=== PATIENT | female | born 1980 | race Caucasian/White ===

== ENCOUNTER 2021-10-04 05:57 | Observation (INO) ==
--- NOTE | 2021-09-30 10:24 | Anesthesiology Consultation ---
Date of Service September 30, 2021 Assessment & Plan (1) Encounter for pre-operative examination: Chart Review Chart Review: Acceptable Risk for Surgery (pending preop Covid testing results ) and Patient NOT seen in Pre Admission Testing Per nursing assessment 09/29/2021, patient denies any recent travel. No known Covid infection in the past 90 days. Patient is fully vaccinated for Covid. No known Covid positive exposures or Covid related symptoms. Preop Covid testing scheduled 10/01/21= will await results History Surgery Operation Date: 10/04/21 07:30 Proposed Procedures p Bilateral Breast Augmentation with Silicone Implants - Jocelyne Cleaning MD s Abdominoplasty - Jocelyne Cleaning MD Height/Weight Height: 5 ft 3 in Weight: 55.792 kg Allergies Allergy/AdvReac Type Severity Reaction Status Date / Time No Known Allergies Allergy Verified 09/29/21 16:31 Medications Home Medications Medication Instructions Recorded Confirmed Last Taken levothyroxine 100 mcg capsule 100 mcg PO QAM 04/16/21 09/29/21 Unknown topiramate 50 mg tablet (Topamax) 100 mg PO HS 04/20/21 09/29/21 Unknown cephalexin 500 mg capsule 500 mg PO TID 7 Days #21 cap 09/23/21 09/29/21 Unknown diazepam 2 mg tablet (Valium) 2 mg PO Q6 PRN #10 tab 09/23/21 09/29/21 Unknown oxycodone-acetaminophen 5 mg-325 1 tab PO Q4H PRN #18 tab 09/23/21 09/29/21 Unknown mg tablet (Endocet) Past Medical History Medical History Chronic low blood pressure Hypothyroid Migraines Nausea and vomiting after administration of anesthetic agent Slow heart rate PT ACTIVE, WORKS OUT FREQUENTLY/ ASYMPTOMATIC Past Family History Family History Sister Clotting disorder Past Surgical History Surgical History S/P appendectomy HX S/P ovarian cystectomy HX MULTIPLE S/P tubal ligation HX Social History Smoking Status: Never smoker Do You Dip or Chew Tobacco: No Hx Alcohol Use: Yes alcohol intake frequency: 0-2 drinks per day Alcohol Intake Frequency Comment: 1-3 truly drinks a night Hx Substance Use: No substance use type: does not use Lab Results Anesthesia Preop Results Results Anesthesia Widget: WBC 4.80 K/uL (4.8-10.8) 09/23/21 Hgb 15.0 g/dL (12.0-16.0) 09/23/21 Hct 42.3 % (37-47) 09/23/21 Plt 263 K/uL (130-400) 09/23/21 Na 140 mmol/L (136-145) 09/23/21 K 3.7 mmol/L (3.5-5.1) 09/23/21 Cl 106 mmol/L (98-107) 09/23/21 CO2 27 mmol/L (21-32) 09/23/21 BUN 24 mg/dl (6-23) H 09/23/21 Creat 0.86 mg/dl (0.6-1.2) 09/23/21 Glucose Level 76 mg/dl (70-99(Fasting)) 09/23/21 PT 10.3 Seconds (9.0-12.0) 09/23/21 INR 1.0 (0.9-1.1) 09/23/21 Testing Electrocardiogram Date: 08/03/20 >2 year old Bradycardia noted at 48bpm per confirming provider
[2021-10-04] MEDS ORDERED: ceFAZolin 2000MG 2,000 MG/15 ML SYR IV SCH (06:00)
[2021-10-04] MEDS ORDERED: LR 15ML/HR IV SCH (06:00)
--- NOTE | 2021-10-04 06:46 | History & Physical Bridge Note ---
Date of Service October 04, 2021 History & Physical Bridge Note I have examined the patient, reviewed the History & Physical and in the interval since the performance of the History & Physical I have noted the following changes of clinical significance: no changes noted
[2021-10-04] MEDS ORDERED: MIDAZOLAM HCL 1 MG/ML 2ML VIAL ONE (06:49)
[2021-10-04] MEDS ORDERED: ROCURONIUM BROMIDE 10 MG/ML 5 ML VIAL IV ONE ×2 (06:49→09:44)
[2021-10-04] MEDS ORDERED: PROPOFOL IV EMULSION 10 MG/ML 20 ML VIAL IV ONE (06:49)
[2021-10-04] MEDS ORDERED: ONDANSETRON INJ 2 MG/ML 2 ML VIAL ONE (06:49)
[2021-10-04] MEDS ORDERED: fentaNYL citrate 100 MCG/2 ML VIAL ONE (06:49)
[2021-10-04] MEDS ORDERED: HYDROmorphone INJ 2 MG/ML SYR/VIAL ONE (06:49)
[2021-10-04] MEDS ORDERED: LIDOCAINE 1%/EPINEPHRINE 1:100,000 50 ML VIAL ONE (07:03)
[2021-10-04] MEDS ORDERED: BUPIVACAINE 0.25% 30 ML VIAL ONE (07:03)
[2021-10-04] MEDS ORDERED: ceFAZolin 330 MG/ML 1 GM VIAL ONE ×2 (07:03→08:18)
[2021-10-04] MEDS ORDERED: EPINEPHrine INJ 1 MG/ML AMP ONE (07:03)
[2021-10-04] MEDS ORDERED: LIDOCAINE 1% LOCAL 20 ML VIAL ONE (07:03)
[2021-10-04] MEDS ORDERED: GENTAMICIN SULFATE 40 MG/ML 2 ML VIAL ONE ×3 (07:03→08:18)
[2021-10-04] MEDS ORDERED: ATROPINE SULFATE 0.1 MG/ML 10ML SYR IV PRN (07:12)
[2021-10-04] MEDS ORDERED: ONDANSETRON INJ 2 MG/ML 2 ML VIAL IV PRN ×2 (07:12→16:09)
[2021-10-04] MEDS ORDERED: ePHEDrine sulfate 50 MG/ML AMP IV PRN (07:12)
[2021-10-04] MEDS ORDERED: PROMETHAZINE HCL 6.25 MG in SODIUM CHLORIDE 0.9% 50 ML IV PRN (07:12)
[2021-10-04] MEDS ORDERED: SCOPOLAMINE 1 MG TDSY TD ONE (07:30)
[2021-10-04] MEDS ORDERED: diphenhydrAMINE 50 MG/ML VIAL ONE (08:04)
[2021-10-04] MEDS ORDERED: SUGAMMADEX SODIUM 200 MG/2 ML VIAL IV ONE (09:18)
[2021-10-04] MEDS ORDERED: ACETAMINOPHEN 1000 MG/100 ML IV IV ONE (09:18)
[2021-10-04] MEDS ORDERED: TISSEEL FIBRIN SEALANT 10ML TOP ONE (12:07)
--- NOTE | 2021-10-04 12:35 | Post Operative Brief Note ---
PG Immediate Post Op with CF Date of Surgery October 04, 2021 Pre & Post Diagnosis Operation Date: 10/04/21 07:30 Pre-Op Diagnosis: Encounter for Cosmetic Surgery Post-Op Diagnosis: Encounter for Cosmetic Surgery I identified the patient and participated in the time-out.: Yes Procedure Operation Date: 10/04/21 07:30 Actual Procedures p Bilateral Breast Augmentation with Silicone Implants(Bilateral) - Jocelyne Cleaning MD s Abdominoplasty - Jocelyne Cleaning MD Surgeon Jocelyne Cleaning MD Program Manager Valerie Arenas PA-C Estimated Blood Loss 50 Findings Consistent with Post-Op Diagnosis Specimens Specimen Description: None per surgeon Drains Cline Catheter and Jimmy-John Drain
--- NOTE | 2021-10-04 12:43 | Operative Report ---
PG Post Operative Report Pre & Post Diagnosis Operation Date: 10/04/21 07:30 Pre-Op Diagnosis: Encounter for Cosmetic Surgery Post-Op Diagnosis: Encounter for Cosmetic Surgery I identified the patient and participated in the time-out.: Yes Procedure Operation Date: 10/04/21 07:30 Actual Procedures p Bilateral Breast Augmentation with Silicone Implants(Bilateral) - Jocelyne Cleaning MD s Abdominoplasty - Jocelyne Cleaning MD Surgeon Jocelyne Cleaning MD Measurement Analyst Valerie Arenas PA-C Estimated Blood Loss 50 Findings Consistent with Post-Op Diagnosis Specimens none Drains JPx2 Anesthesia Type General Complications none Indications desiring cosmetic improvement in abdomen, breast enlargement Description of Procedure The risks, benefits, and alternatives of the procedure were explained to the patient, who agreed and signed consent. She was identified and marked in the preoperative holding area. She was brought to the operating room, where she was positioned supine and placed under general anesthesia without incident. A martinez catheter was placed. Surgical site was prepped and draped sterilely. A time- out procedure was performed. Tegaderms were placed as a barrier over the nipple-areolar complexes bilaterally. Access incision was marked in the inframammary fold using medial border of the areola as the medial most aspect of the incision. 1% lidocaine with epinephrine was used to anesthetize the planned incisions as well as the breast parenchyma. A 15blade scalpel was used to make the incision through skin and into underlying dermis. The incision was deepened using electrocautery through subcutaneous fat and breast parenchyma. I planned a dual plane 3 augmentation. The lateral border of the pectoralis major muscle was identified and elevated. A retropectoral pocket was created using lighted retractor and electrocautery. Dissection was first performed superiorly and laterally and then dissection was carried medially along the inframammary fold. Pectoralis major muscle fibers were divided using electrocautery, leaving the pectoralis fascia intact along the inframammary fold. Small tendinous attachments medially were divided using electrocautery, leaving the origin of the pectoralis intact along the sternum. Once I was satisfied with the pocket dissection, hemostasis was achieved with electrocautery. Following this, the wound was irrigated with saline and sizer implants were tried. I initially began with a 325 cc sizer based on her desired goal of around 300 cc which I placed into the pocket. The implant fit nicely into the pocket but with some minimal skin excess. I also tried a 340 cc extra full profile sizer, which was too large and too projecting .The sizer was removed, pocket was irrigated and packed using antibiotic soaked lap sponges and Marcaine. A similar dissection was undertaken on the right side. Once I was satisfied with the shape and the pocket size of both breasts, the pockets were inspected for hemostasis and again irrigated with triple antibiotic irrigation. Gloves were changed, instruments were wiped down and I selected an 335 cc SSF Natrelle Inspira full profile smooth round silicone gel implant which was then placed in the left breast pocket. The position was checked and the implant was placed inferiorly as possible along the inframammary fold. Superficial fascia was re-approximated using 2-0 Vicryl interrupted sutures, followed by approximation of deep dermis using 2-0 Vicryl suture, superficial dermis using 3-0 PDS suture and closure of the incision using 3-0 Monocryl running subcuticular suture. An identical implant was selected for the right side and closure was performed in similar fashion. Dermabond was applied to both incisions. I then began the abdominoplasty portion of the procedure. I reassessed my markings which included a lower horizontal abdominal incision just below her prior Pfannenstiel incision. Incision was marked bilaterally to the ASIS. I began by injecting 1% lidocaine with epinephrine along the planned incision. The lower abdominal incision was made using a 15-blade scalpel to incise epidermis and superficial dermis followed by electrocautery to incise deep dermis, subcutaneous fat, Andrew's fascia down to the abdominal wall. Electrocautery was used to elevate the anterior abdominal skin flap ligating the perforating vessels with electrocautery. Dissection was carried up to the level of the umbilicus in the midline. At this point, a 15-blade scalpel was used to circumscribe the umbilicus. A vertical midline incision was then made from the incision to the umbilicus and divided in the midline using electrocautery. The umbilicus was then dissected out using electrocautery down to abdominal wall. The umbilical stalk appeared viable throughout the procedure.I continued undermining the abdominal wall skin flap above the umbilicus to the xiphoid process, significantly narrowing the dissection to avoid jeopardizing blood supply.I began repair of the rectus diastasis, which was about 3 cm in greatest diameter and extended nearly the full length of the abdomen, widest above the umbilicus. Plication from the xiphoid to the umbilicus and from the umbilicus to the pubic symphysis was performed using 0 Prolene interrupted [id number] sutures. 0 Prolene running suture was then placed to oversew the [id number] sutures and reinforced the repair. At this point, the bed was flexed and the mid portion of the superior skin flap was inset above the mons pubis using 2-0 Vicryl suture. Skin flaps were marked for excision. A 15-blade scalpel was used to make these incisions and the incision was deepened through dermis, subcutaneous fat, Andrew's fat using electrocautery. 15 Frisian Rocco drains were placed in the wound bed and brought out through a separate stab incision in the mons pubis. The drains were sutured into place using 3-0 nylon. The umbilicus was brought out through an inverted triangular incision in the abdominal wall. This was performed using a 15-blade scalpel. Tisseel was sprayed under the flap and into the wound prior to closure. Wound closure was then begun lateral to medial using 2-0 Vicryl Andrew's fascia sutures, 2-0 Vicryl deep dermal sutures, 2-0 PDO running superficial Quill suture, 3-0 Monocryl running subcuticular suture. Umbilicus was brought out through the inverted triangle incision and was sutured into place using 4-0 chromic half buried horizontal mattress sutures. The umbilicus was dressed using Xeroform and the incision was dressed using Dermabond Prineo followed by dry dressings and an abdominal binder. The procedure was tolerated well. The patient was awakened and transferred to recovery in satisfactory condition. Dry dressings and a surgical bra were placed. The patient was awakened and transferred to recovery in satisfactory condition. Valerie Arenas PA-C was present and scrubbed throughout the entire procedure, assisting with retraction and simultaneous wound closure. I attest to the content of the Intraoperative Record and any orders documented therein. Any exceptions are noted below.
[2021-10-04] MEDS: fentaNYL citrate 100 MCG/2 ML VIAL IV PRN ×2 (13:24→13:34)
--- NOTE | 2021-10-04 13:49 | Anesthesiology Progress Note ---
Date of Service October 04, 2021 Anesthesia Post Procedure Vital Signs Vital Signs: Temp Pulse Pulse Resp BP Pulse Ox 10/04/21 13:35 73 11 L 99/55 L 100 10/04/21 13:25 62 22 122/70 100 10/04/21 13:15 73 30 H 115/77 100 10/04/21 13:05 35.4 C L 57 L 18 104/62 100 10/04/21 06:18 36.5 C 53 L 18 100/60 100 Pain Intensity Bilateral Breast: Pain Intensity: 5 Transfer of Care Handoff Completed per policy Notes Mental Status: alert / awake / arousable and participated in evaluation Patient Amnestic to Procedure: Yes Nausea / Vomiting: adequately controlled Pain: adequately controlled Airway Patency, RR, SpO2: stable & adequate BP & HR: stable & adequate Hydration State: stable & adequate Anesthetic Complications: no major complications apparent and Pt Satisfied with anesthetic care
[2021-10-04] MEDS: HYDROmorphone INJ 1 MG/ML SYRINGE IV PRN ×2 (14:13→14:18)
--- NOTE | 2021-10-04 14:49 | Surgery Progress Note ---
Date of Service October 04, 2021 Assessment & Plan (1) Encounter for cosmetic surgery: Plan: Doing well s/p bilateral breast augmentation and abdominoplasty. Will transfer to med/surg when tmep stable. Subjective Patient resting in ASU. Pain is controlled. Low body temps, working on warming her up. Physical Exam Physical Exam: compression garments in place. no hematoma of breasts, drains with minimal serosang output Results & Data ([facility]) Vital Signs (Past 12 Hours) Vital Signs Temp Pulse Pulse Resp BP Pulse Ox 10/04/21 14:25 47 L 14 101/56 L 100 10/04/21 14:15 42 L 17 118/53 L 100 10/04/21 14:05 44 L 15 95/61 L 100 10/04/21 13:55 44 L 17 109/62 100 10/04/21 13:45 743 H 17 116/60 100 10/04/21 13:35 73 11 L 99/55 L 100 10/04/21 13:25 62 22 122/70 100 10/04/21 13:15 73 30 H 115/77 100 10/04/21 13:05 35.4 C L 57 L 18 104/62 100 10/04/21 06:18 36.5 C 53 L 18 100/60 100 PG Care Time/CCT Total # of Minutes Spent Total Time Spent with Patient: Total time spent is greater than 50% in coordination of care (as documented) at patient's floor/unit and/or counseling patient: Coding Level of Care Code None Diagnoses Encounter for cosmetic surgery Z41.1
[2021-10-04] MEDS ORDERED: diphenhydrAMINE 50 MG/ML VIAL IV PRN (16:09)
[2021-10-04] MEDS ORDERED: diphenhydrAMINE Capsule 25 MG CAP PO PRN (16:09)
[2021-10-04] MEDS ORDERED: diazePAM 5 MG TABLET PO PRN (16:09)
[2021-10-04] MEDS ORDERED: LORazepam 0.5 MG TAB PO PRN (16:09)
[2021-10-04] MEDS ORDERED: oxyCODONE/ACETAMINOPHEN 5mg/325mg TAB PO PRN ×2 (16:09)
[2021-10-04] MEDS ORDERED: MoRPHine SULFATE 2 MG/ML CARP IV PRN (16:09)
[2021-10-04] MEDS ORDERED: PROMETHAZINE HCL 12.5 MG in SODIUM CHLORIDE 0.9% 50 ML IV PRN (16:09)
[2021-10-04] MEDS ORDERED: ACETAMINOPHEN 325 MG TAB PO PRN (16:09)
[2021-10-04] MEDS: D5W AND 1/2NSS + 20MEQ KCL 20 MEQ/1,000 ML BAG IV SCH (16:48)
[2021-10-04] MEDS: MoRPHine SULFATE 4 MG/ML 1 ML CARP\\VIAL IV PRN ×2 (17:30→20:38)
[2021-10-04] MEDS: ceFAZolin 2000MG 2,000 MG/15 ML SYR IV SCH (17:59)
[2021-10-04] MEDS ORDERED: TOPIRAMATE 100 MG TAB PO SCH (21:00)
[2021-10-05] MEDS: ceFAZolin 2000MG 2,000 MG/15 ML SYR IV SCH (00:36)
[2021-10-05] MEDS: D5W AND 1/2NSS + 20MEQ KCL 20 MEQ/1,000 ML BAG IV SCH (06:05)
[2021-10-05] MEDS: LEVOTHYROXINE SODIUM 100 MCG TABLET PO SCH ×2 (07:10→07:11)
[2021-10-05] MEDS ORDERED: MULTIVITAMIN TAB PO SCH (09:00)
--- NOTE | 2021-10-05 13:19 | Surgery Progress Note ---
Date of Service October 05, 2021 Assessment & Plan (1) Encounter for cosmetic surgery: Plan: Belkis is healing well POD#1 s/p bilateral breast augmentation and abdominoplasty. We reviewed all her post-op instructions including when to shower, when to remove gauze dressings, how to care for her umbilicus and drains. She will be d/c home today and call to follow-up tomorrow. Admission and Anticipated Discharge Date Admission Date: October 04, 2021 Subjective Belkis is resting in a chair. She was OOB to ambulate, and she has voided after removal of her martinez. Pain is controlled with Endocet, but she notes she feels very tight. Physical Exam Physical Exam: compression bra and abdominal binder removed. umbical packing changed and drains stripped. incisions are CDI, appropriately swollen with mild ecchymosis of the breasts. drains with 20cc serosang output. Results & Data ([facility]) Vital Signs (Past 12 Hours) Vital Signs Temp Pulse Pulse Resp BP Pulse Ox 10/05/21 12:04 37.2 C 70 66 16 98/63 L 100 10/05/21 07:34 37.2 C 70 16 98/63 L 100 10/05/21 03:02 36.8 C 66 16 101/66 100 PG Care Time/CCT Total # of Minutes Spent Total Time Spent with Patient: Total time spent is greater than 50% in coordination of care (as documented) at patient's floor/unit and/or counseling patient: Coding Level of Care Code None Diagnoses Encounter for cosmetic surgery Z41.1
--- NOTE | 2021-10-05 13:40 | Discharge Summary ---
Date of Service October 05, 2021 Admission HPI Per Admitting Provider see admission H&P Admission Exam Per Admitting Provider see admission H&P Principal Diagnosis Encounter for cosmetic surgery Discharge Exam VSS. incisions CDI, umbilicus viable. drains with appropriate serosang output Discharge Data Allergies Allergy/AdvReac Type Severity Reaction Status Date / Time No Known Allergies Allergy Verified 09/29/21 16:31 Procedures Performed Operation Date: 10/04/21 07:30 Actual Procedures p Bilateral Breast Augmentation with Silicone Implants(Bilateral) - Jocelyne Cleaning MD s Abdominoplasty - Jocelyne Cleaning MD Ordered Studies 10/04/21 05:00 US - OR guided needle placemen Routine Hospital Course (1) Encounter for cosmetic surgery: Patient presented to [facility] for cosmetic surgery. She was taken to the OR and underwent bilateral breast augmentation with silicone breast implants and abdominoplasty. There were no intraoperative complications. She was taken to recovery and transferred to med/surg for observation. On POD#1, she was feeling well. She was tolerating a regular diet and ambulating. She was able to void after catheter was removed. On exam, her vitals were stable. Her incisions were CDI. Her drains had appropriate output. She was discharged home with instructions to follow-up in the office in tw0 weeks. Total Time Total Time Spent Total Time Spent (In Minutes): 20 Discharge Plan Discharge Items Patient Disposition: Home - Self-Care Reason For Visit: Encounter for Cosmetic Surgery POST OP Discharge Diagnosis: s/p bilateral breast augmentation and abdominoplasty Activity: As commented below Non-emergency contact: Surgeon Call non-emergency contact if: you have any medication questions, your pain is n ot controlled, you have a fever, your wound has increased redness and your wound pain has increased Follow-up/Referrals: Valerie Arenas PA-C [Physician Military Communications Specialist] - Ninfa Estes CRNP [Primary Care Provider] - Diet: Regular Addtl Attending Provider Instructions: ACTIVITY RECOMMENDATIONS: __Normal activities x__No bending, lifting or straining. Keep arms at shoulder height or below. Do not try to stand or lay straight until it is easily comfortable to do so. This may take a few days. Sleep in a recliner or propped up on pillows. __No driving __Driving allowed when you are off pain medications _x_Walking permitted __You should have help at home for ___ days DRESSINGS: __No dressings required _x_Keep dressings dry/in place until first office visit- OK to remove gauze tomorrow (Monday). Pack the belly button once a daily with the yellow gauze, and wrap a piece around your drain site once daily. No other dressings required under you compression. You may find it more comfortable to wear a shirt or high waisted underwear under your abdominal binder. Keep compression on at all times. __Remove dressings ___ and leave dressings off _x_Apply ice _at least 3__ days to the breasts only. Use as much as tolerated while awake. __Remove dressings and reapply garment __Apply antibiotic ointment (Bacitracin, Neosporin, etc) to wounds 3-4 times/day for 10 days BATHING: x__Keep dressings dry x_Sponge bathing permitted _x_Showering permitted tomorrow, Friday 10/06. Clean towel with each shower. Hang drains off the side side of shower. Put compression back on once dry. _x_No swimming, hot tubs or soaking in a tub MEDICATIONS: Resume previous medications unless instructed otherwise by your surgeon. _x_Do not use aspirin, Motrin, Advil or Ibuprofen as these may promote bleeding. Please use Tylenol. _x_Prescription(s) provided: Endocet, Valium and antibiotics were sent to your pharmacy. Take entire course of antibiotics. OTHER INSTRUCTIONS: __Record drain output 2-3 times per day SPECIAL CARE INSTRUCTIONS: * It is normal to have a mild fever after surgery. If your temperature is higher than 101.5 degrees F, please call the office at [phone]. * Constipation is a typical side effect of pain medication. An [id number] stool softener will help relieve this. * Leaking around surgical drains may occur and should not cause concern. Sometimes these drains become clogged. If this happens, remove the bulb and milk the clot out of the tube, then replace the bulb. * Drainage from wounds after liposuction is normal and should be expected. Garments will become soiled. You should protect furniture and bedding. This drainage should mostly subside within 2-3 days. Leave garments in place unless instructed to remove them. * If you have unusual drainage from a wound or are concerned you have an infection or have any questions or concerns, please call the office at [phone]. FOLLOW UP VISIT: If not already scheduled, please call the office, , when you return home after surgery to schedule an appointment to be seen in _2__ weeks. Pending Studies at Discharge: No Stand-Alone Forms: My [facility], Opioid Pain Management, Smoking Cessation Medications and DC Order Prescriptions: Continued levothyroxine 100 mcg capsule 100 mcg PO QAM RF: 0 oxycodone-acetaminophen [Endocet] 5-325 mg tablet 1 tab PO Q4H PRN (Reason: pain) Qty: 18 RF: 0 cephalexin 500 mg capsule 500 mg PO TID 7 Days Qty: 21 RF: 0 diazepam [Valium] 2 mg tablet 2 mg PO Q6 PRN (Reason: anxiety) Qty: 10 RF: 0 topiramate [Topamax] 50 mg Tablet 100 mg PO HS RF: 0 Discharge Orders: Discharge Order (Routine); Ordered 10/05/21 Ordered By: Valerie Arenas Admission Data Admit Date/Time: 10/04/21 13:06 Attending Provider: Jocelyne Cleaning Admit Provider: Jocelyne Cleaning Primary Care Provider: Ninfa Estes Other Interventions: Discharge Summary Assessment (RN) Last Done: 10/05/21 12:04 Coding Level of Care Code 48007 OBS Care - Discharge Diagnoses Encounter for cosmetic surgery Z41.1
== END 2021-10-05 13:59 | disposition home or self-care (01) ==
LOC: ASU 05:57 → 3E 05:57